=== PATIENT | male | born 1940 | race Caucasian/White ===

== ENCOUNTER 2024-07-10 11:49 | Emergency (ER) | payer BC, OTHER ==
[2024-07-10] MEDS ORDERED: Bupivacaine PF 0.5% 30 ML VIAL ONE (12:02)
[2024-07-10] MEDS ORDERED: Lidocaine 1% (PF) 30 ML VIAL ONE (12:03)
[2024-07-10] MEDS ORDERED: Boostrix 0.5 ML (Tdap) VIAL (>/=7 yrs of age) ONE (12:12)
[2024-07-10] MEDS ORDERED: Amoxicillin/Potassium Clav 875 MG TAB ONE (12:12)
== END 2024-07-10 13:13 | disposition home or self-care (01) ==
LOC: CSHERS 11:49
DX: S61.214A Laceration without foreign body of right ring finger without damage to nail, initial encounter (principal); Z23 Encounter for immunization; W26.8XXA Contact with other sharp object(s), not elsewhere classified, initial encounter; Y92.239 Unspecified place in hospital as the place of occurrence of the external cause
CPT/HCPCS: 12002; 90471; 90715; J0665

== ENCOUNTER 2024-07-25 11:12 | Emergency (ER) | payer BC, OTHER | END 2024-07-25 12:01 | disposition home or self-care (01) | LOC: CSHERS 11:12 | DX: S61.210D Laceration without foreign body of right index finger without damage to nail, subsequent encounter (principal); X58.XXXD Exposure to other specified factors, subsequent encounter ==